=== PATIENT | female | born 1960 | race Caucasian/White ===

== ENCOUNTER 2018-08-15 09:59 | Emergency (ER) | payer OTHER ==
--- OUTSIDE RECORDS SUMMARY | 2018-08-15 10:01 | XMS REPORT | Clinical Summary ---
:1960 Author Organization [facility] Address [address] [place] [address] Care Team Providers Name Role Phone Unavailable Primary Care Provider Unavailable Allergies Active Allergy Reactions Severity Noted Date Comments Seasonal Allergies 09/19/2015 Medications No known medications Active Problems Problem Noted Date Menopausal symptoms 09/19/2015 Encounters Date Type Specialty Care Team Description 04/05/2018 Telephone Obstetrics and Gynecology Nayeli Cota order MD 03/28/2018 Orders Only Obstetrics and Gynecology Staff, External Office 09/03/2017 Orders Only Obstetrics and Gynecology Nayeli Cota MD 09/01/2017 Telephone Obstetrics and Gynecology Nayeli Cota, Advice Only MD after 08/14/2017 Family History Medical History Relation Name Comments Hypertension Maternal Grandfather Hypertension Maternal Grandmother Relation Name Status Comments Maternal Grandfather Maternal Grandmother Social History Tobacco Use Types Packs/Day Years Used Date Never Smoker Smokeless Tobacco: Never Used Alcohol Use Drinks/Week oz/Week Comments Yes Sex Assigned at Date Recorded Not on file Job Start Date Occupation Industry Not on file Not on file Not on file Travel History Travel Start Travel End No recent travel history available. Last Filed Vital Signs Not on file Plan of Treatment Not on file Procedures Procedure Name Priority Date/Time Associated Diagnosis Comments MAMMO RIGHT ADDITIONAL Routine 03/28/2018 Results for this VW procedure are in the results section. MAMMO SCREENING Routine 09/03/2017 Results for this BILATERAL procedure are in the results section. after 08/14/2017 Results Mammography right additional view (03/28/2018) Narrative Performed At Mammography screening bilateral (09/03/2017) Narrative Performed At after 08/14/2017 Insurance Payer Benefit Plan / Group Subscriber ID Type Phone Address [employer] - [employer] AET[employer] PPO OPEN [facility] xxxxxxxxxx PPO
[2018-08-15] MEDS ORDERED: NA CHLORIDE 0.9% 1,000 ML ONE (10:23)
[2018-08-15] MEDS ORDERED: MORPHINE 4 MG/ML SYR ONE (10:23)
[2018-08-15] MEDS ORDERED: ONDANSETRON 4 MG/2 ML VIAL ONE (10:23)
[2018-08-15] MEDS ORDERED: KETOROLAC 30 MG/ML INJ ONE (10:48)
--- NOTE | 2018-08-15 10:57 | RAD REPORT ---
EXAM DESCRIPTION: RAD - Wrist Right 2 View - 08/15/2018 10:50 am CLINICAL HISTORY: Slip and fall, wrist pain COMPARISON: None. TECHNIQUE: Portable AP and cross-table lateral views were obtained. FINDINGS: There is fracture of the distal radius. Transverse fracture is present distal radius involving the ar ticular surface. Fracture of the articular surfaces in the midportion. Fracture plane extends course of the radial styloid. No impaction, distraction or angulation deformity identifiable. No fracture of the distal ulna. No carpal bone fracture or dislocation. There is slight widening of the scapholunate joint space. Car pal bones maintain normal positioning to the radial articular surface IMPRESSION: Distal right radius fracture as detailed.
--- NOTE | 2018-08-15 11:14 | ER ---
Nurse's Notes [facility] Name: Radha Michele Age: 58 yrs Sex: Female : 1960 Arrival Date: 08/15/2018 Time: 10:00 Bed 13 Private MD: Narinder Baeza B Diagnosis: Fall (on) (from) other stairs and steps;Nondisplaced comminuted fracture of shaft of radius, right arm-distal Presentation: 08/15 10:01 Presenting complaint: Patient states: R wrist pain with deformity that occurred after ss slipping and falling from a standing position. Transition of care: patient was not received from another setting of care. Onset of symptoms was August 15, 2018. Risk Assessment: Do you want to hurt yourself or someone else? Patient reports no desire to harm self or others. Initial Sepsis Screen: Does the patient meet any 2 criteria? No. Patient's initial sepsis screen is negative. Does the patient have a suspected source of infection? No. Patient's initial sepsis screen is negative. Care prior to arrival: None. 10:01 Method Of Arrival: Ambulatory ss 10:01 Acuity: JOHNNY 3 ss Historical: - Allergies: 10:02 No Known Allergies; ss - PSHx: 10:02 Appendectomy; ss - Immunization history:: Adult Immunizations up to date. - Social history:: Smoking status: Patient/guardian denies using tobacco. - Ebola Screening: : Patient denies exposure to infectious person Patient denies travel to an Ebola-affected area in the 21 days before illness onset. - Family history:: not pertinent. Screenin:11 Abuse screen: Denies threats or abuse. Denies injuries from another. Nutritional pc1 screening: No deficits noted. Tuberculosis screening: No symptoms or risk factors identified. Fall Risk Fall in past 12 months (25 points). Assessment: 10:11 General: Appears distressed, uncomfortable, Behavior is calm, cooperative. Pain: pc1 Complains of pain in right hand Pain does not radiate. Pain currently is 10 out of 10 on a pain scale. Quality of pain is described as sharp, Pain began 30 min ago. Alleviated by rest, Aggravated by increased activity. 10:33 Pain: Pain currently is 6 out of 10 on a pain scale. Goal of pain control is to Patient aa5 medicated with Morphine and Zofran, states pain decreased to a 6. New order for Toradol 30mg IV per Dr Ballesteros. 11:46 Reassessment: Patient and/or family updated on plan of care and expected duration. Pain hj level reassessed. Patient is alert, oriented x 3, equal unlabored respirations, skin warm/dry/pink. awaiting hand XRAY before D/C;. Vital Signs: 10:02 Resp 16; Weight 83.91 kg; Height 5 ft. 10 in. (177.80 cm); Pain 8/10; ss 10:04 Temp 98.6; em 10:56 BP 148 / 79; Pulse 55; Resp 18; Pulse Ox 100% on R/A; hj 12:17 BP 130 / 75; Pulse 60; Resp 18; Pulse Ox 100% on R/A; hj 10:02 Body Mass Index 26.54 (83.91 kg, 177.80 cm) ED Course: 10:00 Patient arrived in ED. bd 10:01 Daniel Espinoza, PARDEEP is Primary Nurse. hj 10:02 Triage completed. ss 10:02 Arm band placed on right wrist. ss 10:05 Narinder Baeza MD is Private Physician. mr 10:24 Missed attempt(s): 22 gauge in left wrist. IV discontinued, intact, bleeding pc1 controlled, No redness/swelling at site. Pressure dressing applied. 10:40 Salbador Ballesteros MD is Attending Physician. silvana 10:51 Wrist Right 2 View In Process Unspecified. EDMS 11:11 Carlton Noel MD is Referral Physician. silvana 11:41 X-ray completed. Portable x-ray completed in exam room. Patient tolerated procedure mh1 well. 11:42 Hand Right 2 View In Process Unspecified. EDMS 11:42 Orthoglass splint: Sugar tong splint applied on right arm. Radial pulse present and jb1 within normal limits before and after application of splint. Capillary refill was two seconds before and after application of splint. 12:14 No provider procedures requiring assistance completed. hj 12:16 Patient has correct armband on for positive identification. Bed in low position. Call hj light in reach. Side rails up X 1. Adult w/ patient. Administered Medications: 10:23 Drug: Zofran 4 mg Route: IVP; Site: left forearm; hj 10:52 Follow up: Response: No adverse reaction hj 10:23 Drug: morphine 4 mg Route: IVP; Site: left forearm; hj 10:52 Follow up: Response: No adverse reaction hj 10:35 Drug: TORadol 30 mg Route: IVP; Site: left forearm; hj 10:52 Follow up: Response: No adverse reaction; Pain is decreased hj 11:11 Drug: [place] 10 mg-325 mg 1 tabs Route: PO; hj 11:20 Follow up: Response: No adverse reaction; Pain is decreased Outcome: 11:13 Discharge ordered by . silvana 12:15 Discharged to home ambulatory, with family. 12:15 Condition: stable 12:15 Discharge instructions given to patient, family, Instructed on discharge instructions, follow up and referral plans. medication usage, splint care Demonstrated understanding of instructions, follow-up care, medications, splint care, Prescriptions given X 3. 12:22 Patient left the ED. Signatures: Dispatcher [employer] EDKenn Tinsley1 Liliana Ramos Corey, MD MD cha Rivera, Pinky mr Adriana Magallon 1 Raheem Shirley, BEATER ENGINEER BEATER ENGINEER Marlena Ibrahim, PARDEEP RN Michelle Hirsch RN RN ss Joaquin, Henry, RN RN hj Cantu, Patrick [facility]
--- NOTE | 2018-08-15 11:14 | EDPHYS ---
Physician Documentation [facility] Name: Radha Michele Age: 58 yrs Sex: Female : 1960 Arrival Date: 08/15/2018 Time: 10:00 Bed 13 Private MD: Narinder Baeza B ED Physician Salbador Ballesteros HPI: 08/15 11:01 This 58 yrs old Female presents to ER via Ambulatory with complaints of Fall silvana Injury, Wrist Injury. 11:01 Details of fall: The patient fell from an upright position, while walking. Onset: The silvana symptoms/episode began/occurred just prior to arrival, this morning. Associated injuries: The patient sustained right wrist. Severity of symptoms: At their worst the symptoms were mild, moderate, in the emergency department the symptoms are unchanged. The patient has not experienced similar symptoms in the past. Historical: - Allergies: 10:02 No Known Allergies; ss - PSHx: 10:02 Appendectomy; ss - Immunization history:: Adult Immunizations up to date. - Social history:: Smoking status: Patient/guardian denies using tobacco. - Ebola Screening: : Patient denies exposure to infectious person Patient denies travel to an Ebola-affected area in the 21 days before illness onset. - Family history:: not pertinent. ROS: 11:01 Constitutional: Negative for fever, chills, and weight loss, Eyes: Negative for injury, silvana pain, redness, and discharge, ENT: Negative for injury, pain, and discharge, Neck: Negative for injury, pain, and swelling, Cardiovascular: Negative for chest pain, palpitations, and edema, Respiratory: Negative for shortness of breath, cough, wheezing, and pleuritic chest pain, Abdomen/GI: Negative for abdominal pain, nausea, vomiting, diarrhea, and constipation, Back: Negative for injury and pain, : Negative for injury, bleeding, discharge, and swelling, Skin: Negative for injury, rash, and discoloration, Neuro: Negative for headache, weakness, numbness, tingling, and seizure, Psych: Negative for depression, anxiety, suicide ideation, homicidal ideation, and hallucinations, Allergy/Immunology: Negative for hives, rash, and allergies, Endocrine: Negative for neck swelling, polydipsia, polyuria, polyphagia, and marked weight changes, Hematologic/Lymphatic: Negative for swollen nodes, abnormal bleeding, and unusual bruising. 11:01 MS/extremity: Positive for decreased range of motion, pain, swelling, tenderness, of the right wrist. Exam: 11:01 Constitutional: This is a well developed, well nourished patient who is awake, alert, silvana and in no acute distress. Head/Face: Normocephalic, atraumatic. Eyes: Pupils equal round and reactive to light, extra-ocular motions intact. Lids and lashes normal. Conjunctiva and sclera are non-icteric and not injected. Cornea within normal limits. Periorbital areas with no swelling, redness, or edema. ENT: Nares patent. No nasal discharge, no septal abnormalities noted. Tympanic membranes are normal and external auditory canals are clear. Oropharynx with no redness, swelling, or masses, exudates, or evidence of obstruction, uvula midline. Mucous membranes moist. Neck: Trachea midline, no thyromegaly or masses palpated, and no cervical lymphadenopathy. Supple, full range of motion without nuchal rigidity, or vertebral point tenderness. No Meningismus. Chest/axilla: Normal chest wall appearance and motion. Nontender with no deformity. No lesions are appreciated. Cardiovascular: Regular rate and rhythm with a normal S1 and S2. No gallops, murmurs, or rubs. Normal PMI, no JVD. No pulse deficits. Respiratory: Lungs have equal breath sounds bilaterally, clear to auscultation and percussion. No rales, rhonchi or wheezes noted. No increased work of breathing, no retractions or nasal flaring. Abdomen/GI: Soft, non-tender, with normal bowel sounds. No distension or tympany. No guarding or rebound. No evidence of tenderness throughout. Back: No spinal tenderness. No costovertebral tenderness. Full range of motion. Female : Normal external genitalia. Skin: Warm, dry with normal turgor. Normal color with no rashes, no lesions, and no evidence of cellulitis. Neuro: Awake and alert, GCS 15, oriented to person, place, time, and situation. Cranial nerves II-XII grossly intact. Motor strength 5/5 in all extremities. Sensory grossly intact. Cerebellar exam normal. Normal gait. Psych: Awake, alert, with orientation to person, place and time. Behavior, mood, and affect are within normal limits. 11:01 Musculoskeletal/extremity: Extremities: noted in the right wrist: decreased ROM, pain, swelling, tenderness. Vital Signs: 10:02 Resp 16; Weight 83.91 kg; Height 5 ft. 10 in. (177.80 cm); Pain 8/10; ss 10:04 Temp 98.6; em 10:56 BP 148 / 79; Pulse 55; Resp 18; Pulse Ox 100% on R/A; hj 12:17 BP 130 / 75; Pulse 60; Resp 18; Pulse Ox 100% on R/A; hj 10:02 Body Mass Index 26.54 (83.91 kg, 177.80 cm) MDM: 10:40 Patient medically screened. [facility] 11:09 Data reviewed: vital signs, nurses notes, radiologic studies, plain films. [facility] 08/15 10:51 Order name: Wrist Right 2 View; Complete Time: 11:00 [facility] 08/15 11:42 Order name: Hand Right 2 View; Complete Time: 12:13 [facility] 08/15 10:09 Order name: IV; Complete Time: 10:24 08/15 10:50 Order name: Ice pack; Complete Time: 10:52 [facility] 08/15 11:11 Order name: Sugar Tong Forearm Splint; Complete Time: 11:33 [facility] 08/15 11:11 Order name: Sling; Complete Time: 11:33 [facility] Administered Medications: 10:23 Drug: Zofran 4 mg Route: IVP; Site: left forearm; hj 10:52 Follow up: Response: No adverse reaction hj 10:23 Drug: morphine 4 mg Route: IVP; Site: left forearm; hj 10:52 Follow up: Response: No adverse reaction hj 10:35 Drug: TORadol 30 mg Route: IVP; Site: left forearm; hj 10:52 Follow up: Response: No adverse reaction; Pain is decreased hj 11:11 Drug: [place] 10 mg-325 mg 1 tabs Route: PO; hj 11:20 Follow up: Response: No adverse reaction; Pain is decreased Disposition: 08/15/18 11:13 Discharged to Home. Impression: Fall (on) (from) other stairs and steps, Nondisplaced comminuted fracture of shaft of radius, right arm - distal. - Condition is Stable. - Discharge Instructions: Wrist Fracture Treated With Immobilization, Wrist Pain, Wrist Fracture Treated With Immobilization, [id number], Wrist Pain, [id number]. - Prescriptions for Ibuprofen 600 mg Oral Tablet - take 1 tablet by ORAL route every 8 hours As needed take with food; 21 tablet. Tylenol- Codeine #3 300-30 mg Oral Tablet - take 2 tablet by ORAL route every 6 hours As needed; 30 tablet. Zofran 4 mg Oral Tablet - take 1 tablet by ORAL route every 12 hours As needed; 20 tablet. - Medication Reconciliation Form, Thank You Letter, Antibiotic Education, Prescription Opioid Use form. - Follow up: Carlton Noel MD; When: 1 - 2 days; Reason: Recheck today's complaints, Re-evaluation by your physician. - Problem is new. - Symptoms have improved. Signatures: Dispatcher [employer] EDMS Salbador Ballesteros MD MD cha Calderon, Audri RN RN aa5 Michelle Crain RN RN Daniel Espinoza RN RN Corrections: (The following items were deleted from the chart) 10:51 10:10 Wrist Right 3 View+RAD.RAD.BRZ ordered. EDGA EDMS 11:42 10:50 Hand Right 3 View+RAD.RAD.BRZ ordered. [facility] EDMS 12:22 11:13 08/15/2018 11:13 Discharged to Home. Impression: Fall (on) (from) other stairs hj and steps; Nondisplaced comminuted fracture of shaft of radius, right arm - distal. Condition is Stable. Forms are Medication Reconciliation Form, Thank You Letter, Antibiotic Education, Prescription Opioid Use. Follow up: Carlton Noel; When: 1 - 2 days; Reason: Recheck today's complaints, Re-evaluation by your physician. Problem is new. Symptoms have improved. silvana
[2018-08-15] MEDS ORDERED: HYDROCODONE/APAP 10/325 TAB ONE (11:24)
--- NOTE | 2018-08-15 11:47 | RAD REPORT ---
EXAM DESCRIPTION: RAD - Hand Right 2 View - 08/15/2018 11:42 am CLINICAL HISTORY: PAIN Fracture COMPARISON: No comparisons FINDINGS: Minimally displaced intra-articular distal radius fracture is again noted. Bone detail is obscured by plaster splint material. A dislocation is not evident.
== END 2018-08-15 12:22 | disposition home or self-care (01) ==
LOC: ER 09:59
PROC: 2W3CX1Z Immobilization of Right Lower Arm using Splint (ICD-10-PCS; principal; 2018-08-15)
DX: S52.354A Nondisplaced comminuted fracture of shaft of radius, right arm, initial encounter for closed fracture (principal); W10.9XXA Fall (on) (from) unspecified stairs and steps, initial encounter; Y93.01 Activity, walking, marching and hiking
CPT/HCPCS: 96374; 96375; 99284; J2405; J7030

== ENCOUNTER 2018-09-20 07:33 | Emergency (ER) | payer OTHER ==
--- OUTSIDE RECORDS SUMMARY | 2018-09-20 07:35 | XMS REPORT ---
:1960 Author [facility] Address [address] [place] [address] Dr. Ratliff [address] [place] [id number] Care Team Providers Name Role Phone Unavailable Unavailable Unavailable Problems This patient has no known problems. Allergies, Adverse Reactions, Alerts This patient has no known allergies or adverse reactions. Medications This patient has no known medications.
--- OUTSIDE RECORDS SUMMARY | 2018-09-20 07:35 | XMS REPORT | Clinical Summary ---
:1960 Author Organization [facility] Address [address] [place] [address] Care Team Providers Name Role Phone Unavailable Primary Care Provider Unavailable Allergies Active Allergy Reactions Severity Noted Date Comments Seasonal Allergies 09/19/2015 Medications No known medications Active Problems Problem Noted Date Menopausal symptoms 09/19/2015 Encounters Date Type Specialty Care Team Description 08/31/2018 Telephone Obstetrics and Nayeli Cota Follow-up Gynecology MD Amy 08/31/2018 Orders Only Obstetrics and Nayeli Cota Gynecology MD Amy 04/05/2018 Telephone Obstetrics and Nayeli Cota order Gynecology MD Amy 03/28/2018 Orders Only Obstetrics and Staff, External Gynecology Office after 09/19/2017 Family History Medical History Relation Name Comments [...] Name Priority Date/Time Associated Diagnosis Comments MAMMO SCREENING Routine 08/31/2018 Results for this BILATERAL procedure are in the results section. MAMMO RIGHT ADDITIONAL Routine 03/28/2018 Results for this VW procedure are in the results section. after 09/19/2017 Results Mammography screening bilateral (08/31/2018) Narrative Performed At Mammography right additional view (03/28/2018) Narrative Performed At after 09/19/2017 Insurance Payer Benefit Plan / Group Subscriber ID Type Phone Address [employer] - [employer] AET[employer] PPO [facility] xxxxxxxxxx PPO
[2018-09-20] MEDS ORDERED: NA CHLORIDE 0.9% 1,000 ML ONE (08:21)
[2018-09-20] MEDS ORDERED: PANTOPRAZOLE 40 MG INJ ONE (08:21)
[2018-09-20] MEDS ORDERED: MAGNE/ALUM HYDROXD 30 ML UCUP ONE (08:21)
[2018-09-20] MEDS ORDERED: LIDOCAINE VISCOUS 2% SOLN 15 ML UDC ONE (08:21)
[2018-09-20 08:36] LABS: Absolute Lymphocytes (CBC) 0.7 K/uL (0.7-4.9); Absolute Monocytes 0.3 K/uL (0.1-1.3); Absolute Neutrophil 4.1 K/uL (1.8-8.0); Basophils % 0.4 % (0-1.3); Eosinophils % 0.3 % (0-4.4); Hematocrit 40.7 % (36.0-45.0); Lymphocytes % 13.3 % (15.3-44.8); MPV 8.1 fL (7.6-11.3); Monocytes % 6.5 % (3.3-12.3); RBC Red Blood Cell Count 4.61 M/uL (3.86-4.86)
[2018-09-20 08:37] LABS: Protime INR 0.82
[2018-09-20 08:51] LABS: ALT/SGPT 29 U/L (12-78); AST/SGOT 19 U/L (15-37); Albumin 4.2 g/dL (3.4-5.0); Alkaline Phosphatase 97 U/L (45-117); BUN Blood Urea Nitrogen 11 mg/dL (7-18); Bicarbonate 30 mmol/L (21-32); Bilirubin Direct 0.1 mg/dL (0-0.2); Bilirubin Total 0.4 mg/dL (0.2-1.0); Glucose Level 131 mg/dL (74-106); Lipase 95 U/L (73-393); Magnesium 2.2 mg/dL (1.8-2.4); NT PRO-BNP 95 pg/mL (<125); Potassium 3.8 mmol/L (3.5-5.1); Protein, Total 7.8 g/dL (6.4-8.2); Sodium Level 141 mmol/L (136-145); Troponin (Emerg Dept Use Only) < 0.02 ng/mL (0.0-0.045)
[2018-09-20] MEDS ORDERED: FENTANYL CITR 100 MCG/2 ML ONE ×2 (09:33→11:02)
[2018-09-20] MEDS ORDERED: ONDANSETRON 4 MG/2 ML VIAL ONE ×2 (09:33→09:57)
--- NOTE | 2018-09-20 09:37 | RAD REPORT ---
EXAM DESCRIPTION: CT - Angio Aorta For Dissection - 09/20/2018 9:10 am CLINICAL HISTORY: . Chest and abdominal pain COMPARISON: 2017 CT abdomen TECHNIQUE: Computed tomography angiography of the chest, abdomen pelvis were obtained. 100 cc Isovue 370 was administered intravenously. Coronal and sagittal reconstruction were performed. MIP 3D reconstruction was performed All CT scans are performed using dose optimization technique as appropriate and may include automated exposure control or mA/KV adjustment according to patient size. FINDINGS: An aortic dissection is not seen. An aortic aneurysm is not displayed. The celiac, SMA and SCOTT are patent . A lung consolidation is not present. A pericardial effusion is not seen. A pleural effusion is not n oted. The liver,spleen, pancreas adrenals kidneys demonstrate no significant abnormality. Diverticula stem from the colon without evidence diverticulitis. Small umbilical hernia IMPRESSION: Negative for an aortic dissection.
[2018-09-20 09:55] LABS: Urine Blood NEGATIVE (NEG); Urine Glucose NEGATIVE (NEG); Urine Protein NEGATIVE (NEG); Urine pH 8.5 (5.0-7.0)
[2018-09-20] MEDS ORDERED: DIAZEPAM 10 MG/2 ML INJ SYRINGE ONE (09:56)
--- NOTE | 2018-09-20 11:09 | RAD REPORT ---
EXAM DESCRIPTION: Aryan Single View09/20/2018 8:49 am CLINICAL HISTORY: Chest pain COMPARISON: July 2016 FINDINGS: Lungs are hyperaerated. Calcified granuloma left lung The lungs appear clear of acute infiltrate. The heart is normal size IMPRESSION: No acute abnormalities displayed
--- NOTE | 2018-09-20 11:14 | ER ---
Nurse's Notes [facility] Name: Radha Michele Age: 58 yrs Sex: Female : 1960 Arrival Date: 09/20/2018 Time: 07:34 Bed 19 Private MD: Diagnosis: Esophagitis;Esophagitis, unspecified;Dysphagia;Other chest pain-non cardiac Presentation: 09/20 07:36 Presenting complaint: Patient states: last night i took my supplements, i feel like one hj of the pills didn't go down, and had hiccups all night; tried drinking hot tea, but it didn't help, i had burps, reports vomiting; reports pain on the epigastric area;. Transition of care: patient was not received from another setting of care. Onset of symptoms was September 20, 2018. Risk Assessment: Do you want to hurt yourself or someone else? Patient reports no desire to harm self or others. Initial Sepsis Screen: Does the patient meet any 2 criteria? No. Patient's initial sepsis screen is negative. Does the patient have a suspected source of infection? No. Patient's initial sepsis screen is negative. Care prior to arrival: None. 07:36 Method Of Arrival: Ambulatory 07:36 Acuity: JOHNNY 4 hj 08:03 Acuity: JOHNNY 3 tw2 Triage Assessment: 07:39 General: Appears in no apparent distress. uncomfortable, Behavior is calm, cooperative, hj appropriate for age. Pain: Complains of pain in epigastric area. GI: Reports upper abdominal pain, vomiting. Historical: - Allergies: 07:39 No Known Allergies; hj - Home Meds: 07:45 k2 [Active]; Magnesium Oxide Oral [Active]; Multiple Vitamins Oral [Active]; Potassium tw2 Chloride Oral [Active]; T3 [Active]; Vyvanse 15-20 mg Oral as needed [Active]; Vitamin D3 Oral [Active]; - PMHx: 07:39 Diverticulitis; hj - PSHx: 07:39 Appendectomy; R arm cast; hj - Immunization history:: Adult Immunizations up to date. - Social history:: Smoking status: Patient/guardian denies using tobacco, Patient/guardian denies using alcohol. - Ebola Screening: : Patient negative for fever greater than or equal to 101.5 degrees Fahrenheit, and additional compatible Ebola Virus Disease symptoms Patient denies exposure to infectious person Patient denies travel to an Ebola-affected area in the 21 days before illness onset. - Family history:: not pertinent. Screenin:39 Abuse screen: Denies threats or abuse. Denies injuries from another. Nutritional hj screening: No deficits noted. Tuberculosis screening: No symptoms or risk factors identified. Fall Risk None identified. Assessment: 07:50 General: Appears in no apparent distress. well groomed, Behavior is calm, cooperative, tw2 appropriate for age. Pain: Complains of pain in epigastric area. Neuro: Level of Consciousness is awake, alert, obeys commands, Oriented to person, place, time, situation. Cardiovascular: Heart tones S1 S2 Patient's skin is warm and dry. Respiratory: Airway is patent Respiratory effort is even, unlabored, Respiratory pattern is regular, symmetrical, Breath sounds are clear bilaterally. GI: No signs and/or symptoms were reported involving the gastrointestinal system. Abdomen is flat, Bowel sounds present X 4 quads. : No signs and/or symptoms were reported regarding the genitourinary system. EENT: Reports pain since "like a pressure or a trapped burp in my esophagus". Derm: No signs and/or symptoms reported regarding the dermatologic system. Musculoskeletal: Range of motion: intact in all extremities. 08:52 Reassessment: Patient appears in no apparent distress at this time. No changes from tw2 previously documented assessment. Patient and/or family updated on plan of care and expected duration. Pain level reassessed. Patient is alert, oriented x 3, equal unlabored respirations, skin warm/dry/pink. 10:00 Reassessment: Patient appears in no apparent distress at this time. No changes from tw2 previously documented assessment. Patient and/or family updated on plan of care and expected duration. Pain level reassessed. Patient is alert, oriented x 3, equal unlabored respirations, skin warm/dry/pink. 11:01 Reassessment: Patient and/or family updated on plan of care and expected duration. Pain tw2 level reassessed. Patient is alert, oriented x 3, equal unlabored respirations, skin warm/dry/pink. pt c/o increased pain after the barium swallow test Patient states symptoms have not improved. 12:00 Reassessment: Patient appears in no apparent distress at this time. No changes from tw2 previously documented assessment. Patient and/or family updated on plan of care and expected duration. Pain level reassessed. Patient is alert, oriented x 3, equal unlabored respirations, skin warm/dry/pink. Vital Signs: 07:40 BP 121 / 80; Pulse 67; Resp 18; Temp 99.1(TE); Pulse Ox 97% on R/A; Weight 81.65 kg; hj Height 5 ft. 10 in. (177.80 cm); Pain 0/10; 08:52 BP 126 / 84; Pulse 61; Resp 17; Pulse Ox 98% on R/A; tw2 10:00 BP 138 / 86; Pulse 63; Resp 17; Pulse Ox 98% on R/A; tw2 11:00 BP 146 / 82; Pulse 63; Resp 17; Pulse Ox 99% on R/A; Pain 4/10; tw2 12:00 BP 148 / 84; Pulse 64; Resp 17; Pulse Ox 100% on R/A; tw2 07:40 Body Mass Index 25.83 (81.65 kg, 177.80 cm) ED Course: 07:34 Patient arrived in ED. as 07:38 Triage completed. 07:40 Arm band placed on left wrist. 07:40 Patient has correct armband on for positive identification. Bed in low position. Call light in reach. Side rails up X 1. 07:43 Maggie Beasley, RN is Primary Nurse. tw2 07:52 Salbador Ballesteros MD is Attending Physician. silvana 08:00 Inserted saline lock: 22 gauge in left antecubital area, using aseptic technique. Blood tw2 collected. 08:27 Radiology exam delayed due to lab results not completed at this time. (BUN/Creatinine). [email or web address] 08:48 X-ray completed. Portable x-ray completed in exam room. Patient tolerated procedure sw well. 08:50 XRAY Chest (1 view) In Process Unspecified. EDMS 09:[address] via wheelchair. sj 09:10 CT completed. Patient tolerated procedure well. Patient moved back from CT. sj 09:11 CT Aorta for Dissection In Process Unspecified. EDMS 11:13 Esophagram Only In Process Unspecified. EDMS 11:13 Anastacia Melendez MD is Referral Physician. silvana 11:26 Awaiting lab results, Awaiting: of repeat troponin prior to discharge. tw2 12:15 No provider procedures requiring assistance completed. IV discontinued, intact, tw2 bleeding controlled, No redness/swelling at site. Pressure dressing applied. Administered Medications: 08:10 Drug: GI Cocktail without - (Maalox Suspension 30 ml, Lidocaine Liquid 2 % 15 tw2 ml) Route: PO; 08:51 Follow up: Response: No adverse reaction tw2 08:14 Drug: ProTONIX 40 mg Route: IVP; Site: left antecubital; tw2 08:51 Follow up: Response: No adverse reaction tw2 08:35 Drug: NS 0.9% 1000 ml Route: IV; Rate: 125 ml/hr; Site: left antecubital; tw2 12:17 Follow up: IV Status: Order to discontinue infusion tw2 09:11 Drug: NS 0.9% 1000 ml Route: IV; Rate: 1 bolus; Site: left antecubital; iw 12:17 Follow up: IV Status: Completed infusion; IV Intake: 1000ml tw2 09:35 Not Given (Patient Refused): Zofran 4 mg IVP once; over 2 minutes tw2 09:47 Not Given (Patient Refused): Valium 2 mg IVP once tw2 09:56 Drug: Zofran 4 mg Route: IVP; Site: left antecubital; tw2 10:15 Follow up: Response: No adverse reaction tw2 09:58 Drug: Valium 1 mg Route: IVP; Site: left antecubital; tw2 10:55 Follow up: Response: No adverse reaction; No change in condition tw2 10:53 Drug: fentaNYL (PF) 25 mcg Route: IVP; Site: left antecubital; tw2 11:30 Follow up: Response: No adverse reaction tw2 Intake: 12:17 IV: 1000ml; Total: 1000ml. tw2 Outcome: 11:14 Discharge ordered by MD. pina 12:15 Discharged to home ambulatory, with family. tw2 12:15 Condition: stable 12:15 Discharge instructions given to patient, family, Instructed on discharge instructions, follow up and referral plans. medication usage, Demonstrated understanding of instructions, follow-up care, medications, Prescriptions given X 2. 12:17 Patient left the ED. tw2 Signatures: Dispatcher [employer] EDSalbador Thompson MD MD cha Jones, Pati Mandel Irene, RN RN iw Sophia Goodson Henry, RN RN hj Maggie Beasley, PARDEEP RN tw2 Roselyn Christina j6 Corrections: (The following items were deleted from the chart) 07:41 07:40 Temp 99.1F Temporal; 81.65 kg; Height 5 ft. 10 in.; BMI: 25.8; Pain 0/10; hj hj 07:42 07:36 Presenting complaint: Patient states: last night i took my supplements, i feel hj like one of the pills didn't go down, and had hiccups all night; tried drinking hot tea, but its didn't help, i had burps, reports vomiting; reports pain on the epigastric area; 07:42 07:40 Pulse 67bpm; Resp 18bpm; Pulse Ox 97% RA; Temp 99.1F Temporal; 81.65 kg; Height 5 hj ft. 10 in.; BMI: 25.8; Pain 0/10; hj 11:00 11:00 BP 146 / 82; Pulse 63bpm; Resp 17bpm; Pulse Ox 99% RA; tw2 tw2
--- NOTE | 2018-09-20 11:14 | EDPHYS ---
Physician Documentation [facility] Name: Radha Michele Age: 58 yrs Sex: Female : 1960 Arrival Date: 09/20/2018 Time: 07:34 Bed 19 Private MD: ED Physician Salbador Ballesteros HPI: 09/20 08:05 This 58 yrs old Female presents to ER via Ambulatory with complaints of silvana Epigastric Pain, Back Pain. 08:05 The patient presents with pain that is acute. silvana 08:05 The patient or guardian reports chest pain that is located primarily in the epigastric silvana area, anterior chest wall. Onset: last night, 1 day(s) ago. The patient presents with abdominal pain in the epigastric area. Onset: The symptoms/episode began/occurred 1 day(s) ago. The symptoms are located in the. Onset: The symptoms/episode began/occurred last night. The pain radiates to the thoracic area. Historical: - Allergies: 07:39 No Known Allergies; hj - Home Meds: 07:45 k2 [Active]; Magnesium Oxide Oral [Active]; Multiple Vitamins Oral [Active]; Potassium tw2 Chloride Oral [Active]; T3 [Active]; Vyvanse 15-20 mg Oral as needed [Active]; Vitamin D3 Oral [Active]; - PMHx: 07:39 Diverticulitis; hj - PSHx: 07:39 Appendectomy; R arm cast; hj - Immunization history:: Adult Immunizations up to date. - Social history:: Smoking status: Patient/guardian denies using tobacco, Patient/guardian denies using alcohol. - Ebola Screening: : Patient negative for fever greater than or equal to 101.5 degrees Fahrenheit, and additional compatible Ebola Virus Disease symptoms Patient denies exposure to infectious person Patient denies travel to an Ebola-affected area in the 21 days before illness onset. - Family history:: not pertinent. ROS: 08:05 Constitutional: Negative for fever, chills, and weight loss, Eyes: Negative for injury, silvana pain, redness, and discharge, ENT: Negative for injury, pain, and discharge, Neck: Negative for injury, pain, and swelling, Cardiovascular: Negative for chest pain, palpitations, and edema, Respiratory: Negative for shortness of breath, cough, wheezing, and pleuritic chest pain, Back: Negative for injury and pain, : Negative for injury, bleeding, discharge, and swelling, MS/Extremity: Negative for injury and deformity, Skin: Negative for injury, rash, and discoloration, Neuro: Negative for headache, weakness, numbness, tingling, and seizure, Psych: Negative for depression, anxiety, suicide ideation, homicidal ideation, and hallucinations, Allergy/Immunology: Negative for hives, rash, and allergies, Endocrine: Negative for neck swelling, polydipsia, polyuria, polyphagia, and marked weight changes, Hematologic/Lymphatic: Negative for swollen nodes, abnormal bleeding, and unusual bruising. 08:05 Cardiovascular: Positive for chest pain. 08:05 Abdomen/GI: Positive for 08:05 Back: Positive for pain at rest. Exam: 08:05 Constitutional: This is a well developed, well nourished patient who is awake, alert, silvana and in no acute distress. Head/Face: Normocephalic, atraumatic. Eyes: Pupils equal round and reactive to light, extra-ocular motions intact. Lids and lashes normal. Conjunctiva and sclera are non-icteric and not injected. Cornea within normal limits. Periorbital areas with no swelling, redness, or edema. ENT: Nares patent. No nasal discharge, no septal abnormalities noted. Tympanic membranes are normal and external auditory canals are clear. Oropharynx with no redness, swelling, or masses, exudates, or evidence of obstruction, uvula midline. Mucous membranes moist. Neck: Trachea midline, no thyromegaly or masses palpated, and no cervical lymphadenopathy. Supple, full range of motion without nuchal rigidity, or vertebral point tenderness. No Meningismus. Chest/axilla: Normal chest wall appearance and motion. Nontender with no deformity. No lesions are appreciated. Cardiovascular: Regular rate and rhythm with a normal S1 and S2. No gallops, murmurs, or rubs. Normal PMI, no JVD. No pulse deficits. Respiratory: Lungs have equal breath sounds bilaterally, clear to auscultation and percussion. No rales, rhonchi or wheezes noted. No increased work of breathing, no retractions or nasal flaring. Abdomen/GI: Soft, non-tender, with normal bowel sounds. No distension or tympany. No guarding or rebound. No evidence of tenderness throughout. Back: No spinal tenderness. No costovertebral tenderness. Full range of motion. Female : Normal external genitalia. Skin: Warm, dry with normal turgor. Normal color with no rashes, no lesions, and no evidence of cellulitis. MS/ Extremity: Pulses equal, no cyanosis. Neurovascular intact. Full, normal range of motion. Neuro: Awake and alert, GCS 15, oriented to person, place, time, and situation. Cranial nerves II-XII grossly intact. Motor strength 5/5 in all extremities. Sensory grossly intact. Cerebellar exam normal. Normal gait. Psych: Awake, alert, with orientation to person, place and time. Behavior, mood, and affect are within normal limits. Vital Signs: 07:40 BP 121 / 80; Pulse 67; Resp 18; Temp 99.1(TE); Pulse Ox 97% on R/A; Weight 81.65 kg; hj Height 5 ft. 10 in. (177.80 cm); Pain 0/10; 08:52 BP 126 / 84; Pulse 61; Resp 17; Pulse Ox 98% on R/A; tw2 10:00 BP 138 / 86; Pulse 63; Resp 17; Pulse Ox 98% on R/A; tw2 11:00 BP 146 / 82; Pulse 63; Resp 17; Pulse Ox 99% on R/A; Pain 4/10; tw2 12:00 BP 148 / 84; Pulse 64; Resp 17; Pulse Ox 100% on R/A; tw2 07:40 Body Mass Index 25.83 (81.65 kg, 177.80 cm) MDM: 07:52 Patient medically screened. [facility] 08:09 Data reviewed: vital signs, nurses notes, lab test result(s), EKG, radiologic studies, [facility] CT scan, plain films. 09/20 08:05 Order name: Basic Metabolic Panel; Complete Time: 09:04 [facility] 09/20 08:05 Order name: CBC with Diff; Complete Time: :04 [facility] 09/20 08:05 Order name: LFT's; Complete Time: 09:04 [facility] 09/20 08:05 Order name: Magnesium; Complete Time: 09:04 [facility] 09/20 08:05 Order name: NT PRO-BNP; Complete Time: 09:04 [facility] 09/20 08:05 Order name: PT-INR; Complete Time: 09:04 [facility] 09/20 08:05 Order name: Troponin (emerg Dept Use Only); Complete Time: 09:04 [facility] 09/20 08:05 Order name: XRAY Chest (1 view); Complete Time: 11:13 [facility] 09/20 08:05 Order name: Lipase; Complete Time: 09:04 [facility] 09/20 08:05 Order name: CT Aorta for Dissection; Complete Time: 09:40 [facility] 09/20 08:37 Order name: Esophagram Only EDMS 09/20 09:08 Order name: Urine Dipstick--Ancillary (enter results); Complete Time: 10:39 bd 09/20 11:08 Order name: Troponin I; Complete Time: 12:06 [facility] 09/20 08:05 Order name: EKG; Complete Time: 08:06 [facility] 09/20 08:05 Order name: Cardiac monitoring; Complete Time: 08:06 [facility] 09/20 08:05 Order name: EKG - Nurse/Tech; Complete Time: 08:51 [facility] 09/20 08:05 Order name: IV Saline Lock; Complete Time: 08:23 [facility] 09/20 08:05 Order name: Labs collected and sent; Complete Time: 08:23 [facility] 09/20 08:05 Order name: O2 Per Protocol; Complete Time: 08:07 [facility] 09/20 08:05 Order name: O2 Sat Monitoring; Complete Time: 08:07 [facility] 09/20 08:05 Order name: Urine Dipstick-Ancillary (obtain specimen); Complete Time: 08:51 [facility] Administered Medications: 08:10 Drug: GI Cocktail without - (Maalox Suspension 30 ml, Lidocaine Liquid 2 % 15 tw2 ml) Route: PO; 08:51 Follow up: Response: No adverse reaction tw2 08:14 Drug: ProTONIX 40 mg Route: IVP; Site: left antecubital; tw2 08:51 Follow up: Response: No adverse reaction tw2 08:35 Drug: NS 0.9% 1000 ml Route: IV; Rate: 125 ml/hr; Site: left antecubital; tw2 12:17 Follow up: IV Status: Order to discontinue infusion tw2 09:11 Drug: NS 0.9% 1000 ml Route: IV; Rate: 1 bolus; Site: left antecubital; iw 12:17 Follow up: IV Status: Completed infusion; IV Intake: 1000ml tw2 09:35 Not Given (Patient Refused): Zofran 4 mg IVP once; over 2 minutes tw2 09:47 Not Given (Patient Refused): Valium 2 mg IVP once tw2 09:56 Drug: Zofran 4 mg Route: IVP; Site: left antecubital; tw2 10:15 Follow up: Response: No adverse reaction tw2 09:58 Drug: Valium 1 mg Route: IVP; Site: left antecubital; tw2 10:55 Follow up: Response: No adverse reaction; No change in condition tw2 10:53 Drug: fentaNYL (PF) 25 mcg Route: IVP; Site: left antecubital; tw2 11:30 Follow up: Response: No adverse reaction tw2 Disposition: 09/20/18 11:14 Discharged to Home. Impression: Esophagitis, Esophagitis, unspecified, Dysphagia, Other chest pain - non cardiac. - Condition is Stable. - Discharge Instructions: Dysphagia, Esophagitis, Esophagogastroduodenoscopy. - Prescriptions for Bentyl 20 mg Oral Tablet - take 1 tablet by ORAL route every 6 hours As needed; 20 tablet. Protonix 40 mg Oral Tablet - take 1 tablet by ORAL route once daily; 30 tablet. - Medication Reconciliation Form, Thank You Letter, Antibiotic Education, Prescription Opioid Use form. - Follow up: Private Physician; When: 2 - 3 days; Reason: Recheck today's complaints, Continuance of care, Re-evaluation by your physician. Follow up: Anastacia Melendez; When: Upon discharge from the Emergency Department; Reason: Further diagnostic work-up, Recheck today's complaints. - Problem is new. - Symptoms have improved. Signatures: Dispatcher [employer] Salbador Capone MD MD cha Williams, Irene, RN RN iw Joaquin, Henry, RN RN hj Wise, Tara, RN RN tw2 Corrections: (The following items were deleted from the chart) 12:17 11:14 09/20/2018 11:14 Discharged to Home. Impression: Esophagitis; Esophagitis, tw2 unspecified; Dysphagia; Other chest pain - non cardiac. Condition is Stable. Discharge Instructions: Esophagitis, Esophagogastroduodenoscopy, Dysphagia. Prescriptions for Bentyl 20 mg Oral Tablet - take 1 tablet by ORAL route every 6 hours As needed; 20 tablet, Protonix 40 mg Oral Tablet - take 1 tablet by ORAL route once daily; 30 tablet. and Forms are Medication Reconciliation Form, Thank You Letter, Antibiotic Education, Prescription Opioid Use. Follow up: Private Physician; When: 2 - 3 days; Reason: Recheck today's complaints, Continuance of care, Re-evaluation by your physician. Follow up: Anastacia Melendez; When: Upon discharge from the Emergency Department; Reason: Further diagnostic work-up, Recheck today's complaints. Problem is new. Symptoms have improved. silvana
--- NOTE | 2018-09-20 11:16 | EKG ---
Test Date: 2018-09-20 Test Time: 09:31:32 Mine Manager: CONCEPCIÓN MEASUREMENT RESULTS: Intervals: Rate: 60 CA: 126 QRSD: 102 QT: 460 QTc: 460 Dinosaur: P: 74 CA: 126 QRS: -10 T: 58 INTERPRETIVE STATEMENTS: Normal sinus rhythm Normal ECG Compared to ECG 01/28/2009 16:03:01 Incomplete right bundle-branch block no longer present Electronically Signed On 09-20-18 10:30:48 CDT by Julio Diaz
--- NOTE | 2018-09-20 12:53 | RAD REPORT ---
EXAM DESCRIPTION: RAD - Esophagram Only - 09/20/2018 11:13 am CLINICAL HISTORY: Vomiting and epigastric pain COMPARISON: None FINDINGS: Mild stricture involves the distal esophagus. No permanent filling defects, obstructing or constricting lesions seen. Gastroesophageal reflux was not visualized. A radiopaque foreign body is not seen IMPRESSION: Mild stricture involving the distal esophagus. A radiopaque foreign body is not seen
== END 2018-09-20 12:17 | disposition home or self-care (01) ==
LOC: ER 07:33
DX: K20.9 Esophagitis, unspecified (principal); R47.02 Dysphasia; K57.92 Diverticulitis of intestine, part unspecified, without perforation or abscess without bleeding
CPT/HCPCS: 36415; 71045; 71275; 74175; 74220; 80048; 80076; 81003; 83690; 83735; 83880; 84484; 85025; 85610; 93005; 96361; 96374; 96375; 99284; C9113; J2405; J3010; J3360; J7030; Q9967